=== PATIENT | female | born 1960 ===

== ENCOUNTER 2020-09-07 08:45 | Outpatient (REF) | payer OTHER, SELFPAY ==
--- NOTE | 2020-09-15 12:30 | MHC.AU.ATI ---
Adult Audiological Evaluation- Tinnitus Date of Visit: 09/07/20 Temperer Used: Not Applicable Reason for Appointment: Audiologic evaluation due to bothersome bilateral tinnitus which started approximately 3 months ago and question of hearing loss. Natalia notes she often experiences ear itching/discomfort and places her finger in the ears to relieve the symptoms. She occasionally uses a cream for the symptom without noticeable improvement. Natalia is concerned that frequently placing/pushing the finger in the ears is causing more harm to the ears. Does patient feel they have a hearing loss?: Unsure When Was Hearing Difficulty First Noticed?: Hearing seems to have changed when tinnitus started Has hearing been tested previously?: No Hearing Handicap Inventory: HHIE SCORE: 8 Based on HHIE score, patient has: No perceived hearing handicap Ear History: Family History of Hearing Loss?: Yes: Parents Bothersome Tinnitus/Ringing/Noises in Ears: Both Ears History of occupational noise exposure?: Many years ago Medical History: Medical History: Unremarkable Medical History Medication List: None Otoscopy: Right Ear: Clear canal with small amount of dry skin Left Ear: Clear canal with small amount of dry skin Tympanometry: Tympanometry performed due to: To assess integrity of the middle ear system Right Ear: Normal Middle Ear System (Type A) Left Ear: Normal Middle Ear System (Type A) Otoacoustic Emissions Frequency Range Used: 1.6-8 kHz Right Ear Results: Present 5789-3960 Hz Absent 4691-4157 Hz Analysis: Present emissions suggest normal cochlear function Reduced/Absent emissions suggest cochlear dysfunction Left Ear Results: Present 1122-3288 Hz Absent 2920-4200 Hz Analysis: Present emissions suggest normal cochlear function Reduced/Absent emissions suggest cochlear dysfunction Hearing Evaluation: Transducer(s) Used: Insert Earphones Method: Conventional Audiometry Stimuli Used: Pure Tones Right Ear: Description of Hearing: Normal to borderline normal hearing thresholds through all frequencies Left Ear: Description of Hearing: Normal to borderline normal hearing thresholds through all frequencies. Left ear thresholds are 5-10 dB poorer than the right at 500, 3000, and 0480-0877 Hz Speech Recognition Threshold (SRT): Method Used: Monitored Live Voice Stimuli Used: Spondee Words Right Ear: 10 dB HL Left Ear: 15 dB HL Word Discrimination: Method: Recorded Lists Word Lists Used:: NU-6 Right Ear: 100% at 50 dB HL Left Ear: 100% at 55 dB HL Tinnitus Assessment: Tinnitus Match- Pitch/Frequency: Right ear - 2000 Hz Left ear - 2000 Hz Tinnitus Match- Loudness: Right ear - 30 dB HL Left ear - 25 dB HL Minimum Masking Level: Right ear - 30 dB HL White Noise Left ear - 30 dB HL White Noise Interpretation of Results: Results indicate overall normal hearing for both ears. The absent high frequency otoacoustic emissions bilaterally indicates some cochlear dysfunction and can relate to increased perception of tinnitus. There is no evidence Natalia's placing her finger in the ears has caused any damage to the auditory system. Advise continuing to use the cream to help reduce the ear discomfort. Recommendations: - Extensively discussed the theories of tinnitus which may include the reduced cochlear function of the high frequencies, stress, fatigue, chronic pain. Recent research is also indicating that some individuals are experiencing tinnitus and hearing loss after receiving the COVID 19 vaccination. As Natalia received her vaccinations in May 2020, the timing of the onset of symptoms may coincide with the vaccines. Various management strategies were discussed such as sound therapy and provided a list of tinnitus apps which she can try. Also talked about and provided information about the Progressive Tinnitus Management program used by the 's Administration, as well as possible trial with a tinnitus masker if the symptom becomes more bothersome. - Audiological re-evaluation in one year. Will send a reminder card. If Natalia experiences increased tinnitus and/or hearing loss, an earlier appointment may be scheduled Diagnosis: Primary Diagnosis: H93.13 Tinnitus, Bilateral Services Performed: Comprehensive Audiological Evaluation (CPT 22092) Diagnostic Otoacoustic Emissions (CPT 83502, 26+TC) Tympanometry (CPT 85096) Signature: Provider: Meka Panda, [facility]
== END 2020-09-07 08:46 | disposition home or self-care (01) ==
LOC: HO.SH 08:45
PROVIDERS: Visit Provider Internal Medicine
DX: H93.13 Tinnitus, bilateral (principal)
CPT/HCPCS: 92557; 92567; 92588